=== PATIENT | female | born 2000 | race Caucasian/White ===

== ENCOUNTER 2024-07-24 10:03 | Emergency (ER) | payer OTHER ==
[~2024-07-24] VITALS: Ht 154.9 cm; Wt 55.3 kg
--- NOTE | 2024-07-24 10:50 | ED.PDOC ---
History of Present Illness EXP HPI Comments 24 y/o F, presents to the ED for CC of s/p exposure. Patient states, she was at work here ([employer]) when she accidently stuck her left index finger with a needle. Patient denies warmth, swelling, or discomfort. No other symptoms or modifying factors present at this time. Chief Complaint: Post Exposure Time Seen by MD: 10:47 Primary Care Provider: NONE Reviewed Notes: Nurses Notes, Medications, Allergies Allergies: Coded Allergies: Isoniazid (Verified Allergy, Unknown, 07/24/24) Information Source: Patient Mode of Arrival: Ambulatory Severity: Moderate Severity Needlestick: Wound bled Timing: Minutes Duration: Since onset Prehospital treatment: None Location: Broken skin Exposed by: Needlestick If needlestick: Unknown Treatment prior to arrival: Washing Source information: Unknown Patient information: Unknown Past Medical History PAST MEDICAL HISTORY: Denies Surgical History: Denies all surgeries PSYCHOLOGY CLINICIAN History: Denies all PSYCHOLOGY CLINICIAN Hx Family History Family History: Unknown Social History Smoker: Non-Smoker Alcohol: Denies ETOH Use Drugs: Denies Drug Use Lives In: Home Constitutional: denies: chills, diaphoresis, fatigue, fever, malaise, sweats, weakness, others EENTM: denies: blurred vision, double vision, ear bleeding, ear discharge, ear drainage, ear pain, ear ringing, eye pain, eye redness, hearing loss, mouth pain, mouth swelling, nasal discharge, nose bleeding, nose congestion, nose pain, photophobia, tearing, throat pain, throat swelling, voice changes, others Respiratory: denies: cough, hemoptysis, orthopnea, SOB at rest, shortness of breath, SOB with excertion, stridor, wheezing, others Cardiovascular: denies: chest pain, dizzy spells, diaphoresis, Dyspnea on exertion, edema, irregular heart beat, left arm pain, lightheadedness, palpitations, PND, syncope, others Gastrointestinal: denies: abdomen distended, abdominal pain, blood streaked bowels, constipated, diarrhea, dysphagia, difficulty swallowing, hematemesis, melena, nausea, poor appetite, poor fluid intake, rectal bleeding, rectal pain, vomiting, others Genitourinary: denies: abnormal vagina bleeding, burning, dyspareunia, dysuria, flank pain, frequency, hematuria, incontinence, pain, , vagina discharge, urgency, others Neurological: denies: dizziness, fainting, headache, left sided numbness, left sided weakness, numbness, paresthesia, pre-existing deficit, right sided numbness, right sided weakness, seizure, speech problems, tingling, tremors, weakness, others Musculoskeletal: denies: back pain, gout, joint pain, joint swelling, muscle pain, muscle stiffness, neck pain, others Integumetry: denies: bruises, change in color, change in hair/nails, dryness, laceration, lesions, lumps, rash, wounds, others Allergic/Immunocompromised: denies: Difficulty Healing, Frequent Infections, Hives, Itching, others Hematologic/Lymphatic: denies: anemia, blood clots, easy bleeding, easy bruising, swollen glands, others Endocrine: denies: excessive hunger, excessive sweating, excessive thirst, excessive urination, flushing, intolerance to cold, intolerance to heat, unexplained weight gain, unexplained weight loss, others Psychiatric: denies: anxiety, bipolar disorder, depression, hopeless, panic disorder, schizophrenia, sleepless, suicidal, others All Other Systems: Reviewed and Negative Physical Exam General Appearance: No Apparent Distress, Normal HEENT: Normal ENT Inspection, Pharynx Normal, TMs Normal Neck: Full Range of Motion, Non-Tender, Normal, Normal Inspection Respiratory: Chest Non-Tender, Lungs Clear, No Accessory Muscle Use, No Respiratory Distress, Normal Breath Sounds Cardiovascular: No Edema, No JVD, No Murmur, No Gallop, Normal Peripheral Pulses, Regular Rate/Rhythm Breast Exam: Deferred Gastrointestinal: No Organomegaly, Non Tender, No Pulsatile Mass, Normal Bowel Sounds, Soft Genitalia: Deferred Pelvic: Deferred Rectal: Deferred Extremities: No calf tenderness, Normal capillary refill, Normal inspection, Normal range of motion, Non-tender, No pedal edema Musculoskeletal : Location: Left Extremity Location: Finger 2 (small abrasion) Apperance: Normal Neurologic: Alert, photonic laboratory technician II-XII nml as Tested, No Motor Deficits, Normal Affect, Normal Mood, No Sensory Deficits Cerebellar Function: Normal Reflexes: Normal Skin: Dry, Normal Color, Warm Lymphatic: No Adenopathy Was a procedure done? Was a procedure done?: No Differential Diagnosis (EXP) Differential Diagnosis: Body fluid exposure, Infect. Disease exposure, Needle stick exposure X-Ray, Labs, Meds, VS Vital Signs Date Time Temp Pulse Resp B/P (MAP) Pulse Ox O2 Delivery O2 Flow Rate FiO2 07/24/24 10:08 99.5 88 16 133/103 (113) 98 99.5 Lab Test 07/24/24 10:30 Range/Units Hepatitis B Surface Antigen Pending Hepatitis B Surface Antibody Pending Hepatitis C Antibody Pending HIV (1&2) Antibody Pending Time of 1ST Reevaluation: 11:17 Reevaluation 1ST: Unchanged Patient Education/Counseling: Diagnosis, Treatment Family Education/Counseling: No Family Present Additional Information pt was stuck by a used subcutaneous needle for lovenox from a 69 year old pat ient, without known HIV, hepatitis infections. the stick is a superficial, without active bleeding wound. pt is up to date with hepatitis b Vaccination, however she is adamant to get post exposure hiv treatment, understanding the potential side effects and cost of the treatment, for a very low risk exposure. the source tests will be ordered by the source patient's inhouse provider. pt will follow up with [facility] Departure 1 Departure Time of Disposition: 11:05 Impression: Primary Impression: Needle exposure Qualified Codes: X58.XXXA - Exposure to other specified factors, initial encounter Disposition: HOME / SELF CARE / HOMELESS Condition: Good e-Prescriptions Emtricitabine-Tenofovir Disopr (Truvada) Tab 1 TAB PO DAILY for 28 Days, #28 TAB 0 Refills Prov: SCOUT MCALLISTER MD 07/24/24 Raltegravir Potassium (Isentress) 400 Mg Tab 400 MG PO BID for 28 Days, #56 TAB Prov: SCOUT MCALLISTER MD 07/24/24 Discharged With: Self Critical Care Note Critical Care Time?: No Stability Stability form required: No Heart Score Heart Score: Heart Score Response (Comments) Value History N/A 0 EKG N/A 0 Age N/A 0 Risk Factors N/A 0 Troponin N/A 0 Total 0 I personally scribed for SCOUT MCALLISTER MD ([email or web address]) on 07/24/24 at 10:50. Electronically submitted by Vicenta Parr ([email or web address]). SCOUT MCALLISTER MD July 24, 2024 10:50
[2024-07-24] MEDS ORDERED: EMTRTAB7 PO (11:01)
[2024-07-24] MEDS ORDERED: RALT400T PO (11:01)
[2024-07-24 12:14] VITALS: BP 121/75; PULSE 77; RESP 18; TEMP 99; O2SAT 99
[2024-07-26 09:49] LABS: Hepatitis B Surface Antibody Positive (Negative)
[2024-07-26 10:07] LABS: Hepatitis B Surface Antigen Negative (Negative)
== END 2024-07-24 12:20 | disposition home or self-care (01) ==
LOC: ER 10:03
DX: S60.411A Abrasion of left index finger, initial encounter (principal); Z88.8 Allergy status to other drugs, medicaments and biological substances; W46.0XXA Contact with hypodermic needle, initial encounter; Y93.89 Activity, other specified; Y92.89 Other specified places as the place of occurrence of the external cause; Y99.0 Civilian activity done for income or pay
CPT/HCPCS: 36415; 86703; 86706; 86803; 87340